=== PATIENT | female | born 1955 | race African-American/Black ===

== ENCOUNTER 2017-08-01 17:34 | Emergency (ER) | payer SELFPAY ==
[~2017-08-01 17:34] MED LIST: Iopamidol 370 76% 125 ML VIAL FS ONE; Sodium Chloride 0.9% 100 ML BAG ONE; Sodium Chloride 0.9% 500 ML BAG ONE
[2017-08-01 18:06] LABS: #Basophils 0.1 thou/uL (0.0-0.2); #Eosinphils 0.2 thou/uL (0.0-0.7); #Lymphocytes 0.8 thou/uL (1.20-3.40); #Monocytes 0.5 thou/uL (0.11-0.59); #Neutrophils 7.9 thou/uL (1.40-6.50); %Eosinophils 2.3 % (0.0-10.0); %Lymphocytes 8.6 % (21.0-51.0); %Monocytes 5.6 % (0.0-10.0); %Neutrophils 82.6 % (42.0-75.0); Hemoglobin 11.6 g/dL (12.0-16.0); Mean Corpuscular HGB CONC 34.2 g/dL (32.0-36.0); Mean Corpuscular Hemoglobin 34.6 pg (27.0-31.0); Mean Corpuscular Volume 101.4 fl (81.0-99.0); Mean Platelet Volume 9.7 fL (7.4-10.4); Platelet Count 208 thou/uL (130-400); RBC Distribution Width 12.4 % (11.5-14.5); Red Blood Cell (RBC) Count 3.36 mill/uL (4.20-5.40); White Blood Cell (WBC) Count 9.6 thou/uL (4.8-10.8)
[2017-08-01 18:10] LABS: Prothrombin Time 13.7 SEC (12.0-14.7)
--- NOTE | 2017-08-01 18:13 | RAD ---
RADIOGRAPH CHEST 1 VIEW: HISTORY: 61-year-old female with acute chest pain. FINDINGS: There is no air space density, pulmonary edema, or pneumothorax. The lateral costophrenic angles ar e sharp. IMPRESSION: No acute pulmonary findings. chantel [] POS: [facility]
[2017-08-01] MEDS ORDERED: Ibuprofen 800 MG TAB ONE (18:21)
[2017-08-01 18:22] LABS: ALT (SGPT) 38 U/L (8-55); AST (SGOT) 27 U/L (5-34); Albumin 3.5 g/dL (3.5-5.0); Alkaline Phosphatase 69 U/L (40-150); Anion Gap 15 mmol/L (10-20); BUN (Urea Nitrogen) 18 mg/dL (9.8-20.1); Bilirubin, Total 0.9 mg/dL (0.2-1.2); Calc. Creatinine Clearance 0 mL/min (70-130); Calcium 9.2 mg/dL (7.8-10.44); Carbon Dioxide 29 mmol/L (22-29); Chloride 96 mmol/L (98-107); Estimated GFR-MDRD 57; Globulin 3.8 g/dL (2.4-3.5); Glucose 110 mg/dL (70-105); Lipase 44 U/L (8-78); Protein, Total 7.3 g/dL (6.0-8.3); Sodium 137 mmol/L (136-145)
[2017-08-01 18:23] LABS: CKMB 0.3 ng/mL (0-6.6); Troponin I Less than 0.010 ng/mL (< 0.028)
[2017-08-01 18:24] LABS: Manual Diff?? NO
[2017-08-01 18:26] LABS: Potassium 2.8 mmol/L (3.5-5.1)
[2017-08-01 18:29] LABS: Bilirubin Negative (Negative); Blood, Urine Trace (Negative); Glucose, Urine (Dipstick) Negative (Negative); Leukocyte Small (Negative); Nitrite Positive (Negative); Protein, Urine (Dipstick) Negative (Neg-Trace); Specific Gravity, Urine 1.015 (1.005-1.030)
[2017-08-01 18:35] LABS: Clarity Hazy (Clear)
[2017-08-01] MEDS ORDERED: Potassium Chloride 20 MEQ TAB ONE (18:35)
[2017-08-01 18:38] LABS: RBC/HPF 0-3 HPF (0-3); WBC/HPF 21-50 HPF (0-3)
[2017-08-01 18:39] LABS: Bacteria/HPF 3+ HPF (None Seen); Squamous Epithelial 0-3 HPF (0-3)
--- NOTE | 2017-08-01 21:44 | CT ---
CTA THORAX WITH CONTRAST: DATE: 08/01/2017 (Computed Tomographic Angiography, chest (noncoronary) with contrast material, and image post proces sing) (PE protocol) HISTORY: A 61-year-old female with chills, fever, nausea, cough, and chest pain. TECHNIQUE: IV injection of iodinated contrast: Isovue. Scan acquisition timing attempted to coincide with iodinated contrast bolus reaching maximal density in pulmonary arteries. 3D MIP reconstructions. FINDINGS: No thoracic aortic aneurysm or dissection. 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 Superior to the herniation, the esophagus is filled with fluid. No pleural effusion, pe ricardial effusion, or pneumothorax. No pulmonary thromboembolism identified. Nonspecific mild jerald und glass densities in the bilateral lower lobes. At least some of this is due to breathing motion artifact. In fact, the breathing motion artifact makes it difficult to evaluate to peripheral branc hes of the pulmonary arteries. No consolidation. IMPRESSION: 1. No evidence of pulmonary thromboembolism. 2. Moderate sized hiatal hernia and gastroesophageal reflux disease. chantel[] POS: [facility]
== END 2017-08-01 20:50 | disposition home or self-care (01) ==
LOC: MADERS 17:34
DX: N39.0 Urinary tract infection, site not specified (principal); K44.9 Diaphragmatic hernia without obstruction or gangrene; I10 Essential (primary) hypertension; G43.909 Migraine, unspecified, not intractable, without status migrainosus; E66.9 Obesity, unspecified; E87.6 Hypokalemia; E03.9 Hypothyroidism, unspecified; E78.5 Hyperlipidemia, unspecified; J45.909 Unspecified asthma, uncomplicated; Z79.82 Long term (current) use of aspirin; Z79.899 Other long term (current) drug therapy
CPT/HCPCS: 71010; 71275; 80053; 81003; 81015; 82553; 83690; 84484; 85025; 85379; 85610; 85730; 93005; 96360; J7050

== ENCOUNTER 2018-02-12 14:50 | Outpatient (CLI) | payer OTHER ==
--- NOTE | 2018-02-12 15:54 | RAD ---
LEFT KNEE FOUR VIEWS: 02/12/18 HISTORY: Left knee pain. FINDINGS: There is moderate joint space loss of the medial and lateral compartments. Tricompartmental osteophyt osis. Slight cortical articular surface irregularity and subchondral sclerosis are most pronounced at the lateral compartment. 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 POS: [facility]
== END 2018-02-12 14:51 | disposition home or self-care (01) ==
LOC: MADRAD 14:50
PROVIDERS: ATTEND Family Medicine
DX: M17.0 Bilateral primary osteoarthritis of knee (principal); M25.462 Effusion, left knee